=== PATIENT | female | born 1945 | race Caucasian/White ===

== ENCOUNTER → 2017-12-25 | Outpatient (CLI) | payer MEDICARE, BC ==
[~2017-12-25] MED LIST: ASPI81 PO; CO Q100C9 PO; COQ1200C3 PO; DAILTAB; DAILTAB38 PO; ECASA81 PO; GLIP5TAB8 PO; GLUC10TA3 PO; GLUCTAB PO; LEVO.15 PO; LOSA25TA PO; LOSA25TA31 PO; METF1000 PO; METO1TAB42 PO; NITR0.4S SL; PERC5TAB12 PO; ROSU20 PO; SYNT137T PO; TOPR50TA PO
== END ==
LOC: CPRE 08:12
PROVIDERS: ATTEND Orthopaedic Surgery
DX: Z00.00 Encounter for general adult medical examination without abnormal findings (principal)

== ENCOUNTER → 2017-12-26 | Outpatient (CLI) | payer MEDICARE, BC ==
[~2017-12-26] MED LIST changes: -ASPI81 PO; -CO Q100C9 PO; -DAILTAB; -GLUC10TA3 PO; -GLUCTAB PO; -LOSA25TA31 PO; -NITR0.4S SL; -PERC5TAB12 PO; -SYNT137T PO; -TOPR50TA PO
[2017-12-26 10:06] LABS: HEMATOCRIT 38.5 % (35.0-46.0); HEMOGLOBIN 12.8 GM/DL (11.6-15.3); MEAN CORPUSCULAR HGB CONC 33.3 % (32.0-36.0); MEAN PLATELET VOLUME 7.5 FL (7.0-11.0); PLATELET COUNT 204 TH/MM3 (150-450); RED BLOOD COUNT 4.28 MIL/MM3 (4.00-5.30); RED CELL DISTRIBUTION WIDTH 14.8 % (11.6-17.2); WHITE BLOOD COUNT 6.8 TH/MM3 (4.0-11.0)
[2017-12-26 10:11] LABS: BILIRUBIN, URINE NEG (NEG); BLOOD, URINE NEG (NEG); GLUCOSE,URINE NEG (NEG); KETONE, URINE NEG (NEG); MUCUS URINE FEW /lpf (OCC); NITRITE,URINE NEG (NEG); URINE COLOR YELLOW (YELLW/STRAW); URINE LEUKOCYTE ESTERASE NEG (NEG)
[2017-12-26 10:17] LABS: PROTHROMBIN TIME - PATIENT 10.3 SEC (9.8-11.6)
[2017-12-26 10:38] LABS: BICARBONATE 28.2 MEQ/L (21.0-32.0); CREATININE 0.67 MG/DL (0.50-1.00)
== END ==
LOC: CPRE 08:36
PROVIDERS: ATTEND Orthopaedic Surgery
DX: Z01.812 Encounter for preprocedural laboratory examination (principal); M17.12 Unilateral primary osteoarthritis, left knee; M79.609 Pain in unspecified limb; M21.162 Varus deformity, not elsewhere classified, left knee; E11.9 Type 2 diabetes mellitus without complications
CPT/HCPCS: 36415; 80048; 81001; 85027; 85610; 85730

== ENCOUNTER 2018-01-07 14:11 | Emergency (ER) | payer MEDICARE, BC ==
[2018-01-07] MEDS ORDERED: NITR0.4S SL (14:15)
--- NOTE | 2018-01-07 14:23 | PD ---
HPI Chief Complaint: Fall Time Seen by Provider: 14:19 Travel History International Travel<30 days: No Contact w/Intl Traveler<30days: No History of Present Illness HPI 72-year-old female patient with history of multiple medical issues, supposed to get a left knee surgery tomorrow, presents to the ER today because she tripped and fell hitting her face and her left knee. She had no loss of consciousness, has a small abrasion over her nose, is complaining of left facial pains. She also complains of left knee pain but denies any other injuries. Modifying Factors: None Associated Signs & Symptoms: Trip and fall, left facial injury, head injury without loss consciousness, left knee injury Risk Factors: Elderly PFSH Past Medical History Arthritis: Yes Anxiety: Yes Cancer: No Cardiovascular Problems: Yes (CT/ CABG) High Cholesterol: Yes Chest Pain: Yes Diabetes: Yes Diminished Hearing: No Diverticulitis: Yes Endocrine: No Gastrointestinal Disorders: Yes (DIVERTICULITIS) Genitourinary: No Hepatitis: No Hiatal Hernia: No Hypertension: Yes Immune Disorder: No Implanted Vascular Access Dvce: No Musculoskeletal: Yes (ARTHRITIS, CERVICAL DISC DIS.) Neurologic: No Psychiatric: No Reproductive: No Respiratory: No Myocardial Infarction: Yes Thyroid Disease: Yes Menopausal: Yes Past Surgical History Abdominal Surgery: Yes (COLECTOMY) AICD: No Cardiac Surgery: Yes (CABG) Coronary Artery Bypass Graft: Yes Gynecologic Surgery: Yes (HYSTERECTOMY) Hysterectomy: Yes (1986) Joint Replacement: No Oral Surgery: Yes (TEETH EXTRACTION) Pacemaker: No Other Surgery: Yes Social History Alcohol Use: No Tobacco Use: No Substance Use: No Allergies-Medications (Allergen,Severity, Reaction): Coded Allergies: itraconazole (Unverified Allergy, Intermediate, Hives, 01/07/18) genaralized Reported Meds & Prescriptions Reported Meds & Active Scripts Active Reported Nitrostat SL (Nitroglycerin) 0.4 Mg Subl 0.4 Mg SL DIRECTED PRN 1 tablet under the tongue as needed for chest pain. Repeat every 5 minutes for a total of 3 DOSES or call 911 if NO relief. Synthroid (Levothyroxine Sodium) 150 Mcg Tab 150 Mcg PO DAILY Crestor (Rosuvastatin Calcium) 20 Mg Tab 20 Mg PO DAILY Daily Multiple Vitamin (Multiple Vitamin) 1 Tab Tab 1 Tab PO DAILY Metoprolol Succinate ER 24 HR (Metoprolol Succinate) 25 Mg Tab 25 Mg PO HS Metformin (Metformin HCl) 1,000 Mg Tab 1,000 Mg PO BIDPC Losartan (Losartan Potassium) 25 Mg Tab 25 Mg PO DAILY Glipizide 5 Mg Tab 2.5 Mg PO HS Take 30 minutes before a meal Glipizide 5 Mg Tab 5 Mg PO DAILY Take 30 minutes before a meal Co Q-10 (Coenzyme Q10 (Ubidecarenone)) 200 Mg Cap 200 Mg PO DAILY Aspirin DR (Aspirin) 81 Mg Tabdr 81 Mg PO DAILY Review of Systems Except as stated in HPI: all other systems reviewed are Neg Physical Exam Narrative GENERAL: Well-developed elderly female patient currently in mild distress. Awake and oriented 3. On backboard and c-collar. SKIN: Focused skin assessment warm/dry. HEAD: Atraumatic. Normocephalic. Mildly tender to palpation of the left maxillary area without obvious deformities. Small abrasion to the bridge of the nose. EYES: Pupils equal and round. No scleral icterus. No injection or drainage. ENT: No nasal bleeding or discharge. Mucous membranes pink and moist. NECK: Trachea midline. No JVD. C-collar in place. CARDIOVASCULAR: Regular rate and rhythm. No murmur appreciated. RESPIRATORY: No accessory muscle use. Clear to auscultation. Breath sounds equal bilaterally. CHEST: Nontender throughout without deformity or crepitance. No retractions or use of accessory muscles. GASTROINTESTINAL: Abdomen soft, non-tender, nondistended. Hepatic and splenic margins not palpable. Pelvis: Stable and nontender to palpation. EXTREMITIES: No clubbing, cyanosis, or edema. No joint tenderness, effusion, or edema noted. Left knee mildly tender to palpation. Nontender range of motion. MUSCULOSKELETAL: No obvious deformities. No clubbing. No cyanosis. No edema. NEUROLOGICAL: Awake and alert. No obvious cranial nerve deficits. Motor grossly within normal limits. Normal speech. PSYCHIATRIC: Appropriate mood and affect; insight and judgment normal. Data Data Last Documented VS Vital Signs Date Time Temp Pulse Resp B/P (MAP) Pulse Ox O2 Delivery O2 Flow Rate FiO2 01/07/18 14:27 98.6 92 20 132/72 (92) [address] Brain W/O Iv Contrast(Rout) (01/07/18 14:19) Ct Cerv Spine W/O Contrast (01/07/18 14:19) Ct Facial Bones W/O Iv Cont (01/07/18 14:19) Knee, Complete (4vws) (01/07/18 14:23) Wrist, Complete ([id number]) (01/07/18 14:25) Splint Or Brace Apply/Monitor (01/07/18 15:47) Ed Discharge Order (01/07/18 15:47) MDM Medical Decision Making Medical Screen Exam Complete: Yes Emergency Medical Condition: Yes Medical Record Reviewed: Yes Interpretation(s) Last 24 hours Impressions Wrist X-Ray 01/07/181424 Signed Impressions: Service Date/Time: Sunday, January 07, 2018 14:34 - CONCLUSION: 1. No acute fracture. 2. Possible surgical resection of the trapezium. Ed Hernandez MD Knee X-Ray 01/07/181422 Signed Impressions: Service Date/Time: Sunday, January 07, 2018 14:34 - CONCLUSION: 1. Plain film finding concerning for a nondisplaced, horizontal fracture through the upper third of the patella. 2. Small suprapatellar effusion. 3. Severe degenerative osteoarthritic changes most prominent in the medial tibiofemoral joint space. 4. Dense atherosclerotic calcification of the regional vasculature. Ed Hernandez MD Maxillofacial CT 01/07/18 1419 Signed Impressions: Service Date/Time: Sunday, January 07, 2018 14:47 - CONCLUSION: 1. Cephalhematoma left frontal bone. No acute fracture. 2. Dense atherosclerotic calcification of the left carotid bifurcation. Ed Hernandez MD Head CT 01/07/18 141 Signed Impressions: Service Date/Time: Sunday, January 07, 2018 14:47 - CONCLUSION: 1. Small cephalhematoma over the left frontal bone. 2. Otherwise negative. No acute cranial process, trauma or fracture. Ed Hernandez MD Cervical Spine CT 01/07/18 141 Signed Impressions: Service Date/Time: Sunday, January 07, 2018 14:47 - CONCLUSION: 1. Degenerative disc disease most prominent at C6-7 with wean-hh-[id number] articulation. Minimal grade 1 anterolisthesis C4 on 5 and C6 on 7 appears chronic. No acute fracture 2. Marked facet hypertrophy leftward at C3-4 and C4-5 with some encroachment on the adjacent neural foramina. I believe the spinal canal and neural foramina are adequate throughout, however. Ed Hernandez MD Differential Diagnosis Fall, facial injury, closed head injury, left knee injury: Contusions versus intracranial injuries versus fractures Narrative Course CT the C-spine, brain, and facial bones did not show any signs of acute fractures or intracranial injuries. X-ray of the left knee shows a patellar fracture which is nondisplaced. Patient is supposed to get knee replacement tomorrow by Dr. Estrada, and we have called his service, was put in contact with Dr. Peña who states that at this point, patient would not be a candidate for surgery tomorrow. He states that the patient can be placed in a knee immobilizer to follow-up with Dr. Estrada this week. At this point, my plan would be to release her with follow-up to her orthopedics doctor. Return for new issues as needed. The plan was discussed with her and she states understanding. Patient has a walker at home. Diagnosis Primary Impression: Fall Additional Impression: Left patella fracture Referrals: Haley Estrada MD ([facility]) Med/Other Pt SpecificInfo: Prescription(s) given Scripts Oxycodone-Acetaminophen (Percocet) 5-325 mg Tab 1 TAB PO Q6H Y for PAIN, #10 TAB 0 Refills Prov: Festus Hanks MD 01/07/18 Disposition: 01 DISCHARGE HOME Condition: Stable eFstus Hanks MD Jan 07, 2018 14:23
[2018-01-07 14:27] VITALS: BP 132/72; PULSE 92; RESP 20; TEMP 98.6; O2SAT 92
--- NOTE | 2018-01-07 15:10 | RADRPT ---
EXAM DATE/TIME: 01/07/2018 14:34 [facility] COMPARISON: No previous studies available for comparison. INDICATIONS : Fell, has left knee pain, left patella pain MEDICAL HISTORY : Diabetes mellitus type II. SURGICAL HISTORY : CABG. Right wrist surgery, left knee surgery ENCOUNTER: Initial ACUITY: 1 day PAIN SCORE: 9/10 LOCATION: Left knee FINDINGS: Four view examination of the left knee demonstrates a horizontal lucency through the upper third of t he patella concerning for a nondisplaced fracture. Small suprapatellar effusion. Severe degenerative osteoarthritic changes medial tibiofemoral joint space with loss of height and prominent marginal spu rs. Dense atherosclerotic calcification of the regional vasculature. Small surgical clips in the subc utaneous tissues about the knee medially probably represent prior vein harvesting for CABG.. CONCLUSION: 1. Plain film finding concerning for a nondisplaced, horizontal fracture through the upper third of t he patella. 2. Small suprapatellar effusion. 3. Severe degenerative osteoarthritic changes most prominent in the medial tibiofemoral joint space. 4. Dense atherosclerotic calcification of the regional vasculature. Ed Hernandez MD on January 07, 2018 at 15:05 Board Certified Radiologist. This report was verified electronically.
--- NOTE | 2018-01-07 15:12 | RADRPT ---
EXAM DATE/TIME: 01/07/2018 14:34 [facility] COMPARISON: No previous studies available for comparison. INDICATIONS : Fell, has right wrist area pain MEDICAL HISTORY : Diabetes mellitus type II. SURGICAL HISTORY : CABG. Right wrist, left knee ENCOUNTER: Initial ACUITY: 1 day PAIN SCORE: 6/10 LOCATION: Right wrist FINDINGS: Three view examination of the right wrist demonstrates possible prior surgical resection of the trape zium with a large gap between the first metacarpal and the scaphoid. A small bony fragment is identif ied at the base of the second metacarpal which could represent a piece of the trapezium. Carpal bones are otherwise intact no acute fracture. CONCLUSION: 1. No acute fracture. 2. Possible surgical resection of the trapezium. Ed Hernandez MD on January 07, 2018 at 15:08 Board Certified Radiologist. This report was verified electronically.
--- NOTE | 2018-01-07 15:25 | RADRPT ---
EXAM DATE/TIME: 01/07/2018 14:47 [facility] COMPARISON: CT BRAIN W/O CONTRAST, January 04, 2011, 17:14. INDICATIONS : Fell and hit face. Left frontal soft tissue swelling. RADIATION DOSE: 64.75 CTDIvol (mGy) MEDICAL HISTORY : Cardiovascular disease. Hypertension. Diverticulitis.Diabetes. SURGICAL HISTORY : CABG Hysterectomy.Colectomy. ENCOUNTER: Initial ACUITY: 1 day PAIN SCALE: 5/10 LOCATION: Left frontal TECHNIQUE: Multiple contiguous axial images were obtained of the head. Using automated exposure control and adj ustment of the mA and/or kV according to patient size, radiation dose was kept as low as reasonably a chievable to obtain optimal diagnostic quality images. DICOM format image data is available electro nically for review and comparison. FINDINGS: CEREBRUM: The ventricles are normal for age. No evidence of midline shift, mass lesion, hemorrhage or acute in farction. No extra-axial fluid collections are seen. POSTERIOR FOSSA: The cerebellum and brainstem are intact. The 4th ventricle is midline. The cerebellopontine angle i s unremarkable. EXTRACRANIAL: The visualized portion of the orbits is intact. SKULL: The calvaria is intact. No evidence of skull fracture. Small cephalhematoma over the left frontal nick ne. CONCLUSION: 1. Small cephalhematoma over the left frontal bone. 2. Otherwise negative. No acute cranial process, trauma or fracture. Ed Hernandez MD on January 07, 2018 at 15:21 Board Certified Radiologist. This report was verified electronically.
--- NOTE | 2018-01-07 15:26 | RADRPT ---
EXAM DATE/TIME: 01/07/2018 14:47 [facility] COMPARISON: No previous studies available for comparison. INDICATIONS : Fell and hit face. Abrasion on nasal area. RADIATION DOSE: 25.65 CTDIvol (mGy) MEDICAL HISTORY : Cardiovascular disease. Hypertension. Diverticulitis.Diabetes. SURGICAL HISTORY : CABG Hysterectomy.Colectomy. ENCOUNTER: Initial ACUITY: 1 day PAIN SCORE: 5/10 LOCATION: facial TECHNIQUE: Volumetric scanning of the facial bones was performed. Using automated exposure control and adjustme nt of the mA and/or kV according to patient size, radiation dose was kept as low as reasonably achiev able to obtain optimal diagnostic quality images. DICOM format image data is available electronicall y for review and comparison. FINDINGS: ORBITS: The orbital and infraorbital osseous structures are intact. The retroconal structures have a normal configuration. No radiopaque foreign bodies are seen. NASAL BONE: The nasal bone and maxillary spine are intact ZYGOMATIC ARCHES: Symmetric without evidence of fracture. SINUSES: The maxillary, ethmoid and frontal sinuses are intact. No air-fluid levels seen. NASAL CAVITY: The nasal septum is intact and midline. The lacrimal ducts are intact. SOFT TISSUES: No radiopaque foreign bodies seen. Small cephalhematoma over the left frontal bone. Dense atheroscler otic calcification of the left carotid bifurcation. INTRACRANIAL: No intracranial air seen. CRIBIFORM PLATE: Grossly intact. CONCLUSION: 1. Cephalhematoma left frontal bone. No acute fracture. 2. Dense atherosclerotic calcification of the left carotid bifurcation. Ed Hernandez MD on January 07, 2018 at 15:22 Board Certified Radiologist. This report was verified electronically.
--- NOTE | 2018-01-07 15:30 | RADRPT ---
EXAM DATE/TIME: 01/07/2018 14:47 [facility] COMPARISON: No previous studies available for comparison. INDICATIONS : Fell and hit face. Neck pain. RADIATION DOSE: 26.20 CTDIvol (mGy) MEDICAL HISTORY : Cardiovascular disease. Hypertension. Diverticulitis.Diabetes. SURGICAL HISTORY : CABG Hysterectomy.Colectomy. ENCOUNTER: Initial ACUITY: 1 day PAIN SCALE: 5/10 LOCATION: neck TECHNIQUE: Volumetric scanning of the cervical spine was performed. Multiplanar reconstructions in the sagittal, coronal and oblique axial planes were performed. Using automated exposure control and adjustment o f the mA and/or kV according to patient size, radiation dose was kept as low as reasonably achievable to obtain optimal diagnostic quality images. DICOM format image data is available electronically f or review and comparison. FINDINGS: SAGITTAL and coronal reconstructions showed normal degenerative disc disease with some loss of disc h eight most prominent at C6-7 with [id number] ARTICULATION. MINIMAL GRADE 1 ANTEROLISTHESIS C4 ON 5 AND C5 ON 6 PROBABLY DUE TO FACET DEGENERATION. NO ACUTE FRACTURE. SPINAL CANAL APPEARS TO BE ADEQUAT E THROUGHOUT. CORONAL IMAGES SHOW SOME FACET HYPERTROPHY MOST PROMINENT LEFTWARD AT C3-4 AND C4-5. C2-C3: The bony spinal canal is normal in size. No evidence of disc bulge or herniation. The neural forami na are bilaterally patent. C3-C4: Marked facet hypertrophy leftward. Some encroachment on the left neural foramina but the spinal canal and neural foramina appear to be adequate C4-C5: Marked facet hypertrophy leftward with some encroachment on the neural foramina. Spinal canal and terrell ral foramina appear to be adequate C5-C6: The bony spinal canal is normal in size. No evidence of disc bulge or herniation. The neural forami na are bilaterally patent. C6-C7: The bony spinal canal is normal in size. No evidence of disc bulge or herniation. The neural forami na are bilaterally patent. C7-T1: The bony spinal canal is normal in size. No evidence of disc bulge or herniation. The neural forami na are bilaterally patent. CONCLUSION: 1. Degenerative disc disease most prominent at C6-7 with [id number] articulation. Minimal grade 1 a nterolisthesis C4 on 5 and C6 on 7 appears chronic. No acute fracture 2. Marked facet hypertrophy leftward at C3-4 and C4-5 with some encroachment on the adjacent neural f oramina. I believe the spinal canal and neural foramina are adequate throughout, however. Ed Hernandez MD on January 07, 2018 at 15:24 Board Certified Radiologist. This report was verified electronically.
[2018-01-07] MEDS ORDERED: PERC5TAB12 PO (15:51)
[2018-01-07 15:58] VITALS: BP 105/67; PULSE 64; RESP 16; O2SAT 97
== END 2018-01-07 16:09 | disposition home or self-care (01) ==
LOC: PHED 14:11
DX: S82.002A Unspecified fracture of left patella, initial encounter for closed fracture (principal); S00.83XA Contusion of other part of head, initial encounter; M25.462 Effusion, left knee; M50.323 Other cervical disc degeneration at C6-C7 level; E11.9 Type 2 diabetes mellitus without complications; E07.9 Disorder of thyroid, unspecified; M19.90 Unspecified osteoarthritis, unspecified site; F41.9 Anxiety disorder, unspecified; W01.0XXA Fall on same level from slipping, tripping and stumbling without subsequent striking against object, initial encounter
CPT/HCPCS: 70450; 70486; 72125; 73110; 73564; 99284; L1830